=== PATIENT | female | born 1960 | race Caucasian/White ===

== ENCOUNTER → 2023-10-15 18:26 | Outpatient (REF) | payer BC, SELFPAY | LOC: WDC 18:26 | PROVIDERS: ATTENDING PHYSICIAN Nurse Practitioner Adult Health; FAMILY PHYSICIAN Nurse Practitioner Family | DX: Z12.31 Encounter for screening mammogram for malignant neoplasm of breast (principal); Z80.3 Family history of malignant neoplasm of breast | CPT/HCPCS: 77063; 77067 ==

== ENCOUNTER 2024-04-06 06:06 | Outpatient (RCR) | payer BC, SELFPAY | END 2024-04-06 23:59 | disposition home or self-care (01) | LOC: RPT 06:06 | PROVIDERS: ATTENDING PHYSICIAN Nurse Practitioner Adult Health; FAMILY PHYSICIAN Nurse Practitioner Family | DX: N39.46 Mixed incontinence (principal); N39.41 Urge incontinence; N39.3 Stress incontinence (female) (male); M62.81 Muscle weakness (generalized) | CPT/HCPCS: 97162; 97530 ==

== ENCOUNTER 2024-05-05 11:55 | Outpatient (RCR) | payer BC, SELFPAY | END 2024-05-05 23:59 | disposition home or self-care (01) | LOC: RPT 11:55 | PROVIDERS: ATTENDING PHYSICIAN Nurse Practitioner Adult Health; FAMILY PHYSICIAN Nurse Practitioner Family | DX: N39.46 Mixed incontinence (principal); Z73.6 Limitation of activities due to disability | CPT/HCPCS: 97140; 97530 ==

== ENCOUNTER → 2024-05-11 10:07 | Outpatient (REF) | payer BC, SELFPAY | LOC: HWRAD 10:07 | PROVIDERS: ATTENDING PHYSICIAN Nurse Practitioner Adult Health | DX: R91.1 Solitary pulmonary nodule (principal) | CPT/HCPCS: 71260; Q9967 ==

== ENCOUNTER → 2024-05-25 09:12 | Outpatient (REF) | payer BC, SELFPAY | LOC: RAD 09:12 | PROVIDERS: ATTENDING PHYSICIAN Nurse Practitioner Adult Health | DX: M81.0 Age-related osteoporosis without current pathological fracture (principal) | CPT/HCPCS: 77080 ==

== ENCOUNTER 2024-05-26 11:51 | Outpatient (RCR) | payer BC, SELFPAY | END 2024-05-26 23:59 | disposition home or self-care (01) | LOC: RPT 11:51 | PROVIDERS: ATTENDING PHYSICIAN Nurse Practitioner Adult Health; FAMILY PHYSICIAN Nurse Practitioner Family | DX: N39.46 Mixed incontinence (principal); N39.41 Urge incontinence; N39.3 Stress incontinence (female) (male); Z73.6 Limitation of activities due to disability; M62.81 Muscle weakness (generalized) | CPT/HCPCS: 97014; 97112; 97140; 97530 ==

== ENCOUNTER 2024-06-23 11:59 | Outpatient (RCR) | payer BC, SELFPAY | END 2024-06-23 23:59 | disposition home or self-care (01) | LOC: RPT 11:59 | PROVIDERS: ATTENDING PHYSICIAN Nurse Practitioner Adult Health | DX: N39.46 Mixed incontinence (principal); Z73.6 Limitation of activities due to disability; M62.81 Muscle weakness (generalized) | CPT/HCPCS: 97014; 97112; 97530 ==

== ENCOUNTER 2024-08-04 11:56 | Outpatient (RCR) | payer BC, SELFPAY | END 2024-08-04 23:59 | disposition home or self-care (01) | LOC: RPT 11:56 | PROVIDERS: ATTENDING PHYSICIAN Nurse Practitioner Adult Health | DX: N39.46 Mixed incontinence (principal); N39.41 Urge incontinence; N39.3 Stress incontinence (female) (male); Z73.6 Limitation of activities due to disability; M62.81 Muscle weakness (generalized) | CPT/HCPCS: 97014; 97112; 97530 ==

== ENCOUNTER 2024-09-07 13:07 | Outpatient (RCR) | payer BC, SELFPAY | END 2024-09-07 23:59 | disposition home or self-care (01) | LOC: RPT 13:07 | PROVIDERS: ATTENDING PHYSICIAN Nurse Practitioner Adult Health | DX: N39.46 Mixed incontinence (principal); N39.41 Urge incontinence; N39.3 Stress incontinence (female) (male); Z73.6 Limitation of activities due to disability; M62.81 Muscle weakness (generalized) | CPT/HCPCS: 97014; 97112; 97530 ==

== ENCOUNTER 2024-10-05 09:59 | Outpatient (RCR) | payer BC, SELFPAY | END 2024-10-05 23:59 | disposition home or self-care (01) | LOC: RPT 09:59 | PROVIDERS: ATTENDING PHYSICIAN Nurse Practitioner Adult Health | DX: N39.46 Mixed incontinence (principal); N39.41 Urge incontinence; N39.3 Stress incontinence (female) (male); Z73.6 Limitation of activities due to disability; M62.81 Muscle weakness (generalized) | CPT/HCPCS: 97014; 97112; 97530 ==

== ENCOUNTER 2024-10-12 09:50 | Outpatient (RCR) | payer BC, SELFPAY | END 2024-10-12 10:25 | disposition home or self-care (01) | LOC: RPT 09:50 | PROVIDERS: ATTENDING PHYSICIAN Nurse Practitioner Adult Health | DX: N39.46 Mixed incontinence (principal); N39.41 Urge incontinence; N39.3 Stress incontinence (female) (male); Z73.6 Limitation of activities due to disability; M62.81 Muscle weakness (generalized) | CPT/HCPCS: 97014; 97112; 97530 ==

== ENCOUNTER → 2024-12-15 09:56 | Outpatient (REF) | payer MEDICARE, OTHER, SELFPAY | LOC: WDC 09:56 | PROVIDERS: ATTENDING PHYSICIAN Nurse Practitioner Adult Health; FAMILY PHYSICIAN Nurse Practitioner Adult Health | DX: N64.4 Mastodynia (principal) | CPT/HCPCS: 76642; 77061; 77065 ==

== ENCOUNTER 2025-04-16 21:13 | Emergency (ER) | payer MEDICARE, OTHER, SELFPAY ==
[2025-04-16 21:15] VITALS: BP 171/97
[2025-04-16 21:37] VITALS: BP 156/63
[2025-04-16 21:40] VITALS: BP 156/63; BMI 40.6
--- NOTE | 2025-04-16 22:02 | ED.GENMED ---
History of Present Illness
<Rocío Campos PA-C - Last Filed: 04/17/25 11:56>
General
Chief Complaint: Extremity Pain (non-traumatic)
Source: patient
Exam Limitations: none
Time Seen by Provider: 04/16/25 21:25
History of Present Illness
History of Present Illness:
64yoF with a history of overactive bladder presenting with her for evaluation of left hip pain. Patient is in the process of redoing her bathroom. She was shoveling debris into a bucket when she noticed a twinge in her L hip. She took
750mg Robaxin without relief. She is now experiencing pain radiating to the LLQ, L groin, and L lower back. Pain is worse with movement. She denies any paresthesias or new bowel/bladder issues.
Past History
<Rocío Campos PA-C - Last Filed: 04/17/25 11:56>
Past History
ED Past Medical History: None
ED Past Surgical History: None
Social History
Personal:
Living: with family
Phy Exam
<Rocío Campos PA-C - Last Filed: 04/17/25 11:56>
General Physical Exam
General Presentation: well appearing
General Skin: warm and dry
General Habitus: normal
General Mental: alert
ENT Exam
ENT Exam: normocephalic
Cardiovascular Exam
Cardiovascular Exam: normal peripheral pulses (2+ DP pulses bilaterally)
Pulmonary Exam
Pulmonary Exam: no respiratory distress
Gastrointestinal Exam
Gastrointestinal Exam: soft, non distended and other (+LLQ tenderness. No rebound or guarding.)
Neurological Exam
Neurological Exam: alert
Lane Coma Scale
Eye Opening: Spontaneous
Verbal Response: Oriented
Motor Response: Obeys Commands
GCS Total Score: 15
Musculoskeletal Exam
Musculoskeletal Exam: other (+Tenderness to L lateral hip. ROM mildly decreased and elicits pain.)
Skin Exam
Skin Exam: normal color and warm/dry
Psychiatric Exam
Psychiatric Exam: normal mood/affect
<Gigi Auguste PA-C - Last Filed: 04/17/25 00:33>
Sanchez Coma Scale
GCS Total Score: 15
Course
<Rocío Campos PA-C - Last Filed: 04/17/25 11:56>
Orders/Labs/Results
Orders:
Orders
04/16/25 21:19
CR Hip - LT w/wo Pel 2-3 Vw* Urgent
Comment:
Reason For Exam: injury, pain
Include a pelvis x-ray?: Yes
04/16/25 21:55
CT Abd/pelvis W Iv Cont Urgent
Comment:
Reason For Exam: LLQ pain, L hip/low back pain
Ketorolac [Toradol] 15 mg IV NOW STA
Oxycodone/Acetaminophen [Percocet 5/325] 1 tablet PO NOW STA
04/16/25 22:33
Complete Blood Count/With Diff Urgent
Comprehensive Metabolic Panel Urgent
Abnormal Lab Results
04/16/25
22:33
RBC 4.16 L 10^6/uL
(4.20-5.40)
Hct 35.1 L %
(37.0-47.0)
Lymphocytes % 19.1 L %
(20.5-51.1)
BUN 26 H mg/dl
(7-17)
Creatinine 0.5 L mg/dL
(0.6-1.0)
Glucose 108 H mg/dl
(70-99)
Total Bilirubin 1.4 H mg/dl
(0.2-1.3)
04/16/25 22:33
04/16/25 22:33
Vital Signs
Initial and Last Documented VS:
Initial Vital Signs
Temp Pulse Resp BP Pulse Ox
97.7 F 63 20 171/97 94
04/16/25 21:15 04/16/25 21:15 04/16/25 21:15 04/16/25 21:15 04/16/25 21:15
Last Documented Vital Signs
Temp Pulse Resp BP Pulse Ox
97.7 F 70 18 152/74 100
04/16/25 21:15 04/16/25 21:40 04/16/25 21:40 04/17/25 00:41 04/16/25 22:03
<Gigi Auguste PA-C - Last Filed: 04/17/25 00:33>
Orders/Labs/Results
Orders:
Orders
04/16/25 21:19
CR Hip - LT w/wo Pel 2-3 Vw* Urgent
Comment:
Reason For Exam: injury, pain
Include a pelvis x-ray?: Yes
04/16/25 21:55
CT Abd/pelvis W Iv Cont Urgent
Comment:
Reason For Exam: LLQ pain, L hip/low back pain
Ketorolac [Toradol] 15 mg IV NOW STA
Oxycodone/Acetaminophen [Percocet 5/325] 1 tablet PO NOW STA
04/16/25 22:33
Complete Blood Count/With Diff Urgent
Comprehensive Metabolic Panel Urgent
Abnormal Lab Results
04/16/25
22:33
RBC 4.16 L 10^6/uL
(4.20-5.40)
Hct 35.1 L %
(37.0-47.0)
Lymphocytes % 19.1 L %
(20.5-51.1)
BUN 26 H mg/dl
(7-17)
Creatinine 0.5 L mg/dL
(0.6-1.0)
Glucose 108 H mg/dl
(70-99)
Total Bilirubin 1.4 H mg/dl
(0.2-1.3)
04/16/25 22:33
04/16/25 22:33
Vital Signs
Initial and Last Documented VS:
Initial Vital Signs
Temp Pulse Resp BP Pulse Ox
97.7 F 63 20 171/97 94
04/16/25 21:15 04/16/25 21:15 04/16/25 21:15 04/16/25 21:15 04/16/25 21:15
Last Documented Vital Signs
Temp Pulse Resp BP Pulse Ox
97.7 F 70 18 152/74 100
04/16/25 21:15 04/16/25 21:40 04/16/25 21:40 04/17/25 00:41 04/16/25 22:03
<Rocío Campos PA-C - Last Filed: 04/17/25 11:56>
MDM/Problems Addressed
Differential Diagnosis Includes:
64yoF here with L hip pain that started this evening while doing demo work on her bathroom. Pain radiating to L groin/LLQ and L lower back. Worse with movement. She is hypertensive with otherwise stable vital signs. L hip ROM is painful. +LLQ
tenderness noted on exam. LLE is neurovascularly intact. Differential diagnosis includes but is not limited to: muscular strain, diverticulitis, doubt fracture
Initial ED plan: Hip x-rays obtained in triage appear normal per my interpretation. Will check labs and CT abdomen given abdominal tenderness on exam. IV Toradol and Percocet for pain.
<Rocío Campos PA-C - Last Filed: 04/17/25 11:56>
*Pulse Oximetry
SaO2: 100
Oxygen Mode of Delivery: Room air
<Gigi Auguste PA-C - Last Filed: 04/17/25 00:33>
*Pulse Oximetry
Patient hypoxic: no
*Critical Care Note
Total Time (30-74mins, 75-104mins- exclusive of procedures): Not Applicable
<Gigi Auguste PA-C - Last Filed: 04/17/25 00:33>
Update Note
Update Note:
Assumed care of patient pending CT scan of abdomen. CT was negative for acute abdominal pathology. She is feeling better after administered medications here. Suspect musculoskeletal type of discomfort. Will continue anti-inflammatories.
ED Attending Note
<Rocío Campos PA-C - Last Filed: 04/17/25 11:56>
-
Portions of this chart may have been created with voice recognition software.� Occasional wrong word or��sound alike� substitutions may have occurred due to the inherent limitations of voice recognition software.
Discharge Plan
Departure
Patient Disposition: Home (Routine Discharge)
Date of Disposition: 04/17/25
Time of Disposition: 00:31
Patient with high blood pressure during this ER visit?: No
Discharge Problem:
Acute pain of left hip
Prescriptions:
New
ibuprofen 600 mg tablet
600 mg PO TID PRN (Reason: Pain) Qty: 14 0RF
No Action
oxycodone-acetaminophen [Percocet] 5-325 mg Tablet
1 tab PO Q4H PRN (Reason: pain)
acetaminophen 500 mg Capsule
1,000 mg PO Q6H PRN (Reason: pain)
epinephrine [EpiPen] 0.3 mg/0.3 mL Auto-Injector
0.3 mg IM Q4H PRN (Reason: allergy bee)
Referrals:
Cher Trotter CRNP [Family Provider, Internal Medicine]
Activity Restrictions/Additional Instructions:
Continue with warm compresses. Use anti-inflammatories as needed. Return if worse otherwise follow-up with your doctor
Interventions
Interventions:
*Risk Screen - Suicide Last Done: 04/16/25 21:15
*General Assessment Last Done: 04/16/25 21:15
*Neglect/Abuse Screening Last Done: 04/16/25 21:15
*ED- Fall Risk Assessment Last Done: 04/17/25 00:50
*ED COVID-19 Vaccine History Last Done: 04/17/25 00:50
*Nursing Disposition Last Done: 04/17/25 00:50
ED-Skin Assessment Last Done: 04/16/25 21:41
ED-Peripheral Vascular Assessment Last Done: 04/16/25 21:41
ED-Musculoskeletal Assessment Last Done: 04/16/25 21:41
Discharge Date and Time
Discharge Date/Time: 04/17/25 00:51
Print Language: OMANI
[2025-04-16] MEDS: TORADOL 15 MG IV (22:28)
[2025-04-16] MEDS: PERCOCET 5/325 1 TABLET PO (22:28)
[2025-04-16 22:42] LABS: Hematocrit 35.1 % (37.0-47.0); Hemoglobin 12.3 g/dL (12.0-16.0); Mean Corp Hgb Conc. 35.0 g/dL (33.0-37.0); Mean Corpuscular Volume 84.4 fL (81.0-99.0); Nucleated Red Blood Cells % 0 %; Platelet Count 218 10^3/uL (130-400); Red Cell Dist. Width 12.4 % (11.5-14.5)
[2025-04-16 23:06] LABS: ALT (SGPT) 29 U/L (0-35); AST (SGOT) 26 U/L (14-36); Albumin 4.5 g/dl (3.5-5.0); Alkaline Phosphatase 83 U/L (38-126); Blood Urea Nitrogen 26 mg/dl (7-17); Calcium 9.5 mg/dl (8.4-10.2); Carbon Dioxide 28 mmol/L (22-30); Chloride 107 mmol/L (98-107); Estimated Creatinine Clearance > 125 ml/min; Glucose 108 mg/dl (70-99); Potassium 4.3 mmol/L (3.5-5.1); Sodium 141 mmol/L (135-145); Total Protein 7.4 g/dl (6.3-8.2); eGFR > 60.00
[2025-04-17 00:41] VITALS: BP 152/74
== END 2025-04-17 00:51 | disposition home or self-care (01) ==
LOC: EMR 21:13
PROVIDERS: Physician Assistant; EMERGENCY PHYSICIAN Emergency Medicine; FAMILY PHYSICIAN Nurse Practitioner Adult Health
DX: M25.552 Pain in left hip (principal); R10.32 Left lower quadrant pain
CPT/HCPCS: 96374; 99284; 73502; 74177; 80053; 85025; Q9967